=== PATIENT | male | born 1975 | race Caucasian/White ===

== ENCOUNTER 2018-04-16 00:07 | Emergency (ER) | payer BC ==
[~2018-04-16] VITALS: Ht 177.8 cm; Wt 90.7 kg
[2018-04-16 00:10] VITALS: BP 126/75
== END 2018-04-16 03:52 | disposition home or self-care (01) ==
LOC: ER 00:18
DX: R09.89 Other specified symptoms and signs involving the circulatory and respiratory systems (principal); Z88.2 Allergy status to sulfonamides
CPT/HCPCS: 70360; 71045; 99284; A4606; Z7610